=== PATIENT | female | born 1950 | race Caucasian/White ===

== ENCOUNTER 2021-09-20 16:14 | Inpatient (IN) | payer OTHER ==
--- OUTSIDE RECORDS SUMMARY | 2021-09-20 16:20 | XMS REPORT | Continuity of Care Document ---
:[address] [facility] t Address [address] [place] [address] Dr. Mckeon [address] [place] [address] Care Team Providers Name Role Phone GRETATER Attending Clinician Unavailable SWEETIE Attending Clinician Unavailable DEEDEE Attending Clinician Unavailable TAMY Attending Clinician Unavailable MD Lorena ISAAC Attending Clinician Unavailable Mamadou VILLANUEVA Attending Clinician Unavailable PONCHO Admitting Clinician Unavailable RAMÓN COMBS Admitting Clinician Unavailable Problems This patient has no known problems. Allergies, Adverse Reactions, Alerts This patient has no known allergies or adverse reactions. Medications This patient has no known medications. Procedures This patient has no known procedures. Encounters Start End Encounter Admission Attending Care Care Encounter Source Date/Time Date/Time Type Type Clinicians Facility Department ID 2021-06-03 2021-06-03 Outpatient SITTER, [facility] [id number] 00:00:00 00:00:00 CONNIE 018 Method i 2021-05-31 2021-05-31 Outpatient SWEETIE, [facility] [id number] 00:00:00 00:00:00 JEFFY 716 [facility] 2021-05-05 2021-05-05 Outpatient MARK, [facility] [id number] 00:00:00 00:00:00 JOHANNY 466 [address] [place] 2021-04-29 2021-04-29 Outpatient MORELOS, [facility] [id number] 00:00:00 00:00:00 CHRIS 023 Method i 2021-04-28 2021-04-28 Outpatient SITTER, [facility] [id number] 00:00:00 00:00:00 CONNIE 720 [facility] i 2021-04-28 2021-04-28 Outpatient SITTER, [facility] [id number] 00:00:00 00:00:00 CONNIE 441 [facility] i 2021-04-21 2021-04-21 Outpatient SITTER, [facility] [id number] 00:00:00 00:00:00 CONNIE [address] 2021-04-13 2021-04-13 Outpatient SITTER, [facility] 384 [id number] 00:00:00 00:00:00 CONNIE [address] 2021-04-08 2021-04-08 Outpatient SITTER, [facility] [id number] 00:00:00 00:00:00 CONNIE [address] 2021-04-01 2021-04-01 Outpatient MORELOS, [facility] [id number] 00:00:00 00:00:00 CHRIS 004 Method i 2021-03-04 2021-03-04 Outpatient SWEETIE, [facility] [id number] 00:00:00 00:00:00 JEFFY [address] 2021-03-04 2021-03-04 Outpatient SWEETIE, [facility] [id number] 00:00:00 00:00:00 JEFFY [address] 2021-03-04 2021-03-04 Outpatient SWEETIE, [facility] [id number] 00:00:00 00:00:00 JEFFY [address] 2021-02-01 2021-02-01 Outpatient SITTER, [facility] [id number] 00:00:00 00:00:00 CONNIE [address] 2021-01-25 2021-01-25 Outpatient SITTER, [facility] [id number] 00:00:00 00:00:00 CONNIE [address] 2021-01-04 2021-01-04 Outpatient SITTER, [facility] [id number] 00:00:00 00:00:00 CONNIE [address] 2021-01-04 2021-01-04 Outpatient SITTER, [facility] [id number] 00:00:00 00:00:00 CONNIE [address] 2021-01-04 2021-01-04 Outpatient SITTER, [facility] [id number] 00:00:00 00:00:00 CONNIE [address] Results Test Description Test Time Test Comments Results Result Comments Source SARS-CoV-2 (COVID-19) RNA [Presence] in Respiratory sp ecimen by 2021-04-08 19:25:53 JERRY with probe detection Test Item Value Reference Range Interpretation Comme nts SARS-CoV-2 (COVID-19) RNA [Presence] in Respiratory Not detected No t-Detected specimen by JERRY with probe detection (test code = 55388-9) Whether patient is employed in a healthcare setting (test code = 43012-3) Whether the patient has symptoms related to condition of interest (test code = 39794-4) Patient was hospitalized because of this condition (test code = 01701-7) Whether the patient was admitted to intensive care unit (ICU) for condition of interest (test code = 89745-6) Whether patient resides in a congregate care setting (test code = 74410-4) MR, EXTREMITY, UPPER, [id number] 10:51:00Reason for Exam:->eval pain/swellingAddendum BeginsREPORT STATUS:A MRI of the right hand, not left hand was performed as incorrectly stated in the technique section. Signed: Blaine Walker MDReport Verified Date/Time: 10/26/2017 10:51:17 Reading Location: [address] Radiology Reading RoomAddendum EndsFINAL REPORT MRI of the right hand. CLINICAL HISTORY: Pain, swelling. COMPARISON STUDY: Plain film dated May 02, 2013. TECHNIQUE: Multiplanar, multisequence imaging of the left hand was performed both pre and post ministration of intravenous gadolinium. This exam was performed according to our department dose optimization program which includes automated exposure control, adjustmentof the mA and/or kV according to the patient's size and/or use of iterative reconstruction technique. FINDINGS: The soft tissues are within normal limits. No fluid collections are seen. There is no evidence of cellulitis or edema. The flexor and extensor tendons are intact with no evidence of tearing.The visualized portions of the carpal tunnel are intact. No osseous abnormality is seen. There is noevidence of fracture or malalignment. The interosseous ligaments of the wrist are poorly seen as theexam concentrated on the distal of the hand. Postcontrast, no enhancing lesions are seen. There are n o masses or ganglion cysts seen. No significant osteoarthritic changes are identified. No evidence of inflammatory arthropathy is noted. IMPRESSION:1. Essentially unremarkable MRI of the right hand. Signed: Blaine Walkerepkhadijah Verified Date/Time: 10/25/2017 14:40:10 Reading Location: [facility] C013X Ortho Consult Reading Room [id number] 09:36:00 Test Item Value Reference Range Interpretation Comments POC-CREATININE 0.6 mg/dL 0.6-1.[address] [facility] L 1317 ([facility]) (test [address] code = 1859) [facility] 77 478 POC-EGFR 99 mL/min/1.73M2 ([facility]) (test code = 1860)
[2021-09-20 18:02] LABS: SARS-COV-2 RT PCR NEGATIVE (NEGATIVE)
[2021-09-20] MEDS ORDERED: ONDANSETRON 4 MG/2 ML VIAL IV PRN (20:38)
[2021-09-20] MEDS ORDERED: LOPERAMIDE HCL 2 MG CAPSULE PO PRN (20:38)
[2021-09-20] MEDS ORDERED: POLYETHYL GLY 3350 17 GM/DOSE PO PRN (20:38)
[2021-09-20] MEDS ORDERED: HYDROMORPHONE HCL 1 MG/ML INJ IV PRN (20:38)
[2021-09-20] MEDS ORDERED: DIPHENHYDRAMINE 25 MG TAB/CAP PO PRN (20:38)
[2021-09-20 20:47] LABS: Absolute Lymphocytes (CBC) 2.3 K/uL (0.7-4.9); Hematocrit 37.4 % (36.0-45.0); Lymphocytes % 25.6 % (15.3-44.8); MPV 7.8 fL (7.6-11.3); RBC Red Blood Cell Count 4.24 M/uL (3.86-4.86)
[2021-09-20 20:54] LABS: Protime INR 1.09
[2021-09-20] MEDS: NACHLORIDE 0.45% 1,000 ML IV SCH (21:18)
[2021-09-20 21:36] LABS: Albumin 3.5 g/dL (3.4-5.0); Bilirubin Direct 0.2 mg/dL (0-0.2); Bilirubin Total 0.5 mg/dL (0.2-1.0); Magnesium 2.1 mg/dL (1.8-2.4); Phosphorus 3.3 mg/dL (2.5-4.9); Potassium 4.3 mmol/L (3.5-5.1); Protein, Total 7.3 g/dL (6.4-8.2); Thyroid Stimulating Hormone 0.842 uIU/mL (0.360-3.740)
[2021-09-20 22:22] LABS: Urine Appearance CLEAR (Clear); Urine Bilirubin NEGATIVE (Negative); Urine Blood TRACE (Negative); Urine Color YELLOW (Yellow); Urine Glucose NEGATIVE (Negative); Urine Protein NEGATIVE (Negative); Urine Specific Gravity <=1.005 (1.005-1.030); Urine Urobilinogen 0.2 mg/dL (0.2-1.0)
[2021-09-20 22:27] LABS: Urine Microscopic Reflex ORDER UMIC
[2021-09-20 23:11] LABS: Urine Bacteria 20-50 /HPF (<20); Urine RBC <5 /HPF (NONE SEEN)
[2021-09-21 00:16] VITALS: BMI 32.8
[2021-09-21] MEDS: METRONIDAZOLE 500mg IVPB 500 MG/100 ML BAG IV SCH ×5 (00:48→23:54)
[2021-09-21] MEDS: CEFOXITIN 1 GM in NA CHLORIDE 0.9% 50 ML IVPB SCH ×5 (00:49→23:54)
[2021-09-21] MEDS: ACETAMINOPHEN 325 MG TABLET PO PRN ×2 (01:03→14:11)
[2021-09-21] MEDS ORDERED: PNEUMOCOCCAL VACCINE 0.5 ML IMVAC ONE (08:00)
[2021-09-21] MEDS ORDERED: INFLUENZA VACCINE (for 6+ mo) 0.5 ML DOSE IMVAC ONE (08:00)
--- NOTE | 2021-09-21 08:28 | RAD REPORT ---
EXAM DESCRIPTION: RAD - Chest Pa And Lat (2 Views) - 09/21/2021 1:32 am CLINICAL HISTORY: diffuse abdominal pain Chest pain. COMPARISON: Chest Pa And Lat (2 Views) dated 03/03/2017 FINDINGS: The lungs are mildly emphysematous but clear. The heart is mildly enlarged in size. No dis placed fractures.
--- NOTE | 2021-09-21 08:45 | P.CNS ---
Date of Consult: 09/21/21 CC: Abdominal pain HPI: Patient is a 71-year-old female presents to the hospital from Dr. Rodriguez's office with abdominal pain for 1 day. Pain has been present diffusely around the abdomen. This is associated with nausea but no vomiting. Patient has had diarrhea and is passing gas today. No blood in her stool. No dysuria or hematu gerhard. No sore throat runny nose cough headaches dizziness or chest pain. No fever or chills. Patient's last colonoscopy was several years ago patient is due for another colonoscopy in the near future. Review of systems otherwise unremarkable. PMHx: Hypertension and congestive heart failure PSHx: Knee replacement, cholecystectomy, appendectomy and ileocecal ectomy Allergies: None Social history: Patient denies smoking or drinking Family history: Noncontributory Vitals stable afebrile Physical exam: Awake alert oriented x3 HEENT: Cranial nerves II through XII grossly within normal limits, no neck masses, no JVD, throat clear and neck supple Chest: Clear Heart: S1-S2 Abdomen: Soft, minimal distention, positive bowel sounds, no tenderness and no evidence of peritonitis or abdominal wall hernia Extremity: Nontender Neuro: Nonfocal Diagnostic data: White count is normal and chemistry reviewed. CT of the abdomen pelvis reviewed which reveals a developing bowel obstruction. No evidence of pneumatosis or free air present. Dilatation of the small bowel is noted. Assessment: Abdominal pain with possible small bowel obstruction developing--more likely to be ileus. Recommendation: We will repeat the abdominal x-ray today and follow-up afterwards. Patient will need serial abdominal exam, hydration and empiric antibiotics. Based on current information patient does not have a surgical abdomen at this time. Should she not improve with conservative measures she may need intervention. We will follow the patient while in the hospital.
[2021-09-21] MEDS: ENOXAPARIN 40 MG/0.4 ML SQ SCH (09:09)
--- NOTE | 2021-09-21 10:08 | RAD REPORT ---
EXAM DESCRIPTION: RAD - Abdomen W Erect - 09/21/2021 9:51 am CLINICAL HISTORY: follow up SBO Pain COMPARISON: Abdomen Pelvis W Contrast dated 09/21/2021 FINDINGS: Several mildly dilated and thickened small bowel loops are again seen in the central abdom en compatible with mild mechanical small-bowel obstruction. Oral contrast from CT is seen in the colo n, indicating that a complete obstruction is not present. No free air.
--- NOTE | 2021-09-21 10:41 | RAD REPORT ---
EXAM DESCRIPTION: Head Brain Wo Cont CLINICAL HISTORY: 38-year-old female with pain and fever. COMPARISON: None. TECHNIQUE: CT brain without contrast. This exam was performed according to our departmental dose opt imization program which includes use of automated exposure control, adjustment of the mA and/or kV ac cording to patient size and/or use of iterative reconstruction technique. FINDINGS: The ventricles, sulci, and cisterns are within normal limits. The tidwell-white matter diff erentiation is preserved. There is no mass effect, midline shift, intra- or extra-axial fluid colle ction/acute hemorrhage. The osseous structures are unremarkable. Trace secretions mucosal thicken ing present within the RIGHT sphenoid sinus. The paranasal sinuses and mastoid air cells are otherwis e clear. IMPRESSION: No acute intracranial abnormalities. Electronically signed by: Sumaya Lloyd MD 09/21/2021 12:42 AM ECONOMIC RESEARCH ANALYST Due to temporary technical issues with the PACS/Fluency reporting system, reports are being signed by the in house radiologists without review as a courtesy to insure prompt reporting. The interpreting radiologist is fully responsible for the content of the report.
[2021-09-21] MEDS ORDERED: CEFOXITIN SODIUM 1 GM/VIAL ONE (11:44)
--- NOTE | 2021-09-21 21:25 | P.PN ---
Subjective Date of Service: 09/21/21 Chief Complaint: ABDOMEN PAIN Subjective: No new changes MONICA HAS DIFFUSE ABDOMEN PAIN. ON CT SCAN THEY REPORT TO HAVE EARLY OBSTRUCTION. SHE HAS NO VOMITING, SHE PASSES SOME GAS. LAST GOOD BM WAS ABOUT 3 DAYS AGO. SHE HAD SMALL AMT OF BM A DAY AGO. Physical Examination - Vital Signs Temperature: 97.6 F Blood Pressure: 131/60 Pulse: 68 Respirations: 16 Pulse Ox (%): 96 - Physical Exam General: Alert, In no apparent distress, Acute distress, Mild distress HEENT: Atraumatic, PERRLA, EOMI Neck: Supple, JVD not distended Respiratory: Clear to auscultation bilaterally, Normal air movement Cardiovascular: Regular rate/rhythm, Normal S1 S2 Gastrointestinal: Normal bowel sounds, No tenderness Musculoskeletal: No tenderness Integumentary: No rashes Neurological: Normal speech, Normal tone, Normal affect Lymphatics: No axilla or inguinal lymphadenopathy - Studies Laboratory Data (last 24 hrs) 09/20/21 20:38: Sodium 139, Potassium 4.3, BUN 9, Creatinine 0.72, Glucose 116 H, Phosphorus 3.3, Magnesium 2.1, Total Bilirubin 0.5, AST 29, ALT 59, Alkaline Phosphatase 136 H, Amylase 28, Lipase 58 L Medications List Reviewed: Yes Assessment And Plan - Current Problems (Diagnosis) (1) Paralytic ileus Current Visit: Yes Status: Acute Plan: DR MONTES HAS RULED OUT OBSTRUCTION. SHE HAS BARIUM PASSAGE THROUGH SMALL INTESTINE. WILL START CLEAR LIQUIDS AND HE WILL DO ANOTHER X RAY IN AM. SHE HAS HAD GB SURGERY, APPENDECTOMY AND REMOVAL OF SMALL LENGTH OF ILEUM WITH GANGRENE MANY YEARS AGO. THERE MAY BE SCARRING FROM THIS.
[2021-09-22 01:41] VITALS: O2SAT 99
[2021-09-22] MEDS: CEFOXITIN 1 GM in NA CHLORIDE 0.9% 50 ML IVPB SCH ×2 (05:34→11:58)
[2021-09-22] MEDS: METRONIDAZOLE 500mg IVPB 500 MG/100 ML BAG IV SCH ×2 (05:34→11:59)
--- NOTE | 2021-09-22 08:01 | RAD REPORT ---
EXAM DESCRIPTION: RAD - Abdomen Single View - 09/22/2021 5:36 am CLINICAL HISTORY: Abdominal pain FINDINGS: Since September 21, 2021 the dilated small bowel has mildly diminished in caliber. This indicat es mild improvement in the small bowel obstruction Contrast and air is present within the colon.
--- NOTE | 2021-09-22 09:03 | P.PN ---
Date of Service: 09/22/21 Subjective: Patient is tolerating clear liquids without difficulty. Patient had 2 bowel movements. Patient has no abdominal pain. Objective: Vitals stable and patient is afebrile Abdominal x-ray reviewed with the radiologist Dr. Gonzalez. There is been a slight improvement in the size of the small bowel. Physical exam: Abdomen is soft nondistended nontender with positive bowel sounds. Assessment: Abdominal pain with ileus versus gastroenteritis. Recommendations: We will advance diet to full liquid if tolerated patient can be discharged home. Patient needs a GI follow-up for colonoscopy.
[2021-09-22] MEDS: NACHLORIDE 0.45% 1,000 ML IV SCH (09:59)
[2021-09-22] MEDS: ENOXAPARIN 40 MG/0.4 ML SQ SCH (09:59)
[2021-09-22 16:30] VITALS: BP 145/81; TEMP 96.8
[2021-09-22] MEDS ORDERED: LOSARTAN POTASSIUM 50 MG TABLET PO SCH (17:00)
--- NOTE | 2021-09-22 18:43 | P.DS ---
Admission Date: 09/21/21 Discharge Date: 09/22/21 Disposition: ROUTINE DISCHARGE Discharge Condition: GOOD Reason for Admission: ABDOMEN PAIN - Problems (1) Paralytic ileus Status: Acute Hospital Course: NISHA HAS TOLERATED FOOD WELL AFTER LARGE BM. SHE WILL REDUCE WELCHOL THAT SHE TAKES FOR CHRONIC GB REMOVAL RELATED DIARRHEA. SHE IS STABLE FOR DISCHARGE. Vital Signs/Physical Exam: Temp Pulse Resp BP Pulse Ox 96.8 F 63 16 145/81 H 98 09/22/21 16:00 09/22/21 16:00 09/22/21 16:00 09/22/21 16:00 09/22/21 16:00 Laboratory Data at Discharge: WBC 9.00 K/uL (4.3-10.9) 09/20/21 20:38 Hgb 12.7 g/dL (12.0-15.0) 09/20/21 20:38 Hct 37.4 % (36.0-45.0) 09/20/21 20:38 Plt Count 324 K/uL (152-406) 09/20/21 20:38 PT 12.5 SECONDS (9.5-12.5) 09/20/21 20:38 INR 1.09 09/20/21 20:38 APTT 29.3 SECONDS (24.3-36.9) 09/20/21 20:38 Sodium 139 mmol/L (136-145) 09/20/21 20:38 Potassium 4.3 mmol/L (3.5-5.1) 09/20/21 20:38 BUN 9 mg/dL (7-18) 09/20/21 20:38 Creatinine 0.72 mg/dL (0.55-1.3) 09/20/21 20:38 Glucose 116 mg/dL (74-106) H 09/20/21 20:38 Phosphorus 3.3 mg/dL (2.5-4.9) 09/20/21 20:38 Magnesium 2.1 mg/dL (1.8-2.4) 09/20/21 20:38 Total Bilirubin 0.5 mg/dL (0.2-1.0) 09/20/21 20:38 AST 29 U/L (15-37) 09/20/21 20:38 ALT 59 U/L (12-78) 09/20/21 20:38 Alkaline Phosphatase 136 U/L (45-117) H 09/20/21 20:38 Amylase 28 U/L (25-115) 09/20/21 20:38 Lipase 58 U/L (73-393) L 09/20/21 20:38 Home Medications: Celecoxib [Celebrex] 200 mg PO DAILY AT SUPPER 09/21/21 Colesevelam [Welchol] 2 tab PO AMB AD MARI 09/21/21 Esomeprazole Mag Trihydrate [Nexium] 40 mg PO DAILY 09/21/21 Losartan Potassium [Cozaar] 100 mg PO DAILY AT SUPPER 09/21/21 Followup: Adria Rodriguez MD [ACTIVE - CAN ADMIT] - (Call to schedule appointment)
[2021-09-24 23:24] LABS: Vitamin D 1,25-Dihydroxy Total 52 pg/mL (18-72); Vitamin D,1,25-OH2, D2 <8 pg/mL
== END 2021-09-22 18:05 | disposition home or self-care (01) | DRG 390 ==
LOC: 2ND 16:17 → OBSVTOIN 09-21 12:20
PROVIDERS: ADMIT Internal Medicine; ATTEND Internal Medicine
DX: K56.0 Paralytic ileus (principal); I10 Essential (primary) hypertension; M06.9 Rheumatoid arthritis, unspecified; Z88.2 Allergy status to sulfonamides; Z96.659 Presence of unspecified artificial knee joint; Z20.822 Contact with and (suspected) exposure to COVID-19
CPT/HCPCS: 0240U; 36415; 71046; 74018; 74019; 74177; 80048; 80076; 81003; 81015; 82150; 82607; 82652; 83690; 83735; 84100; 84443; 85025; 85610; 85730; 87086; 87088; G0378; G0379; J0694; J1170; J1650; J2405; Q9967